=== PATIENT | male | born 1960 | race Two or more races ===

== ENCOUNTER 2025-01-05 16:11 | Emergency (ER) | payer BC, SELFPAY ==
[2025-01-05 16:18] VITALS: BP 140/100
[2025-01-05 16:36] VITALS: BMI 21.1
[2025-01-05 16:36] LABS: % Basophils 0.9 % (0-2); % Eosinophils 4.1 % (0-6); % Immature Granulocytes 0.2 % (0-0.5); % Lymphocytes 32.1 % (20.5-51.1); % Monocytes 7.6 % (1.7-9.3); % Neutrophils 55.1 % (42.2-75.2); Absolute Basophils 0.1 10^3/uL (0-0.2); Absolute Eosinophils 0.2 10^3/uL (0-0.7); Absolute Lymphocytes 1.7 10^3/uL (1.2-3.4); Absolute Monocytes 0.4 10^3/uL (0.1-0.6); Hematocrit 45.3 % (39.0-52.0); Hemoglobin 15.2 g/dL (13.0-18.0); Mean Corp Hgb Conc. 33.6 g/dL (33.0-37.0); Mean Corpuscular Hgb 29.6 pg (27.0-31.0); Mean Corpuscular Volume 88.1 fL (80.0-94.0); Mean Platelet Volume 11.7 fL (7.4-10.4); Nucleated Red Blood Cells % 0 % (-); Platelet Count 167 10^3/uL (130-400); Red Blood Cell Count 5.14 10^6/uL (4.70-6.10); Red Cell Dist. Width 12.9 % (11.5-14.5); White Blood Cell Count 5.4 10^3/uL (4.8-10.8)
[2025-01-05 16:52] LABS: ALT (SGPT) 33 U/L (0-50); AST (SGOT) 33 U/L (17-59); Albumin 4.6 g/dl (3.5-5.0); Alkaline Phosphatase 63 U/L (38-126); Blood Urea Nitrogen 16 mg/dl (9-20); Calcium 9.2 mg/dl (8.4-10.2); Carbon Dioxide 27 mmol/L (22-30); Chloride 104 mmol/L (98-107); Estimated Creatinine Clearance 53 ml/min; Glucose 134 mg/dl (70-99); Potassium 3.9 mmol/L (3.5-5.1); Sodium 140 mmol/L (135-145); Total Bilirubin 0.7 mg/dl (0.2-1.3); Total Protein 6.9 g/dl (6.3-8.2); eGFR > 60.00
[2025-01-05 17:04] LABS: Troponin I < 0.012 ng/ml
[2025-01-05 17:08] VITALS: BP 109/75
--- NOTE | 2025-01-05 17:24 | ED.GENMED ---
History of Present Illness
General
Chief Complaint: Chest Pain
Source: patient
Exam Limitations: none
Time Seen by Provider: 01/05/25 16:34
Nursing documentation reviewed up to this point in time: agreed with
History of Present Illness
History of Present Illness:
64 yr old male presents to the ED for evaluation of cp. Patient reports he has had intermittent chest pain for the past one week . Pt reports at times he will feel it in his left upper back and left arm. It is not associate with exertion. It
comes and goes intermittently. He denies any associated shortness of breath sweating or nausea with symptoms. He has no cardiac history. He is currently asymptomatic. He does not smoke. He denies injury. denies any injury.
His only medical history..
Review of Systems
Review of Systems
Allergies reviewed?: Yes
All Other Systems: ROS reviewed and negative except as documented in HPI and ROS
Constitutional: Reports no symptoms
EENT: Reports no symptoms
Respiratory: Denies trouble breathing
Cardiac: Reports chest pain; Denies diaphoresis, palpitations or syncope
ABD/GI: Reports no symptoms
: Reports no symptoms
Musculoskeletal: Reports no symptoms
Skin: Reports no symptoms
Neurological: Reports no symptoms
Endocrine: Reports no symptoms
Psychiatric: Reports no symptoms
Phy Exam
General Physical Exam
General Presentation: no apparent distress
General age: appears stated age
General Skin: warm and dry
General Habitus: normal
General Mental: alert
General Hydration: appears well hydrated
Cardiovascular Exam
Cardiovascular Exam: regular rate/rhythm, no murmur and normal peripheral pulses
Pulmonary Exam
Pulmonary Exam: lungs clear and no respiratory distress
Neurological Exam
Neurological Exam: alert and oriented x3
Musculoskeletal Exam
Musculoskeletal Exam: full ROM
Skin Exam
Skin Exam: normal color and warm/dry
Scores
Heart Score for Chest Pain Patients
STEMI patient?: Not applicable
Course
Orders/Labs/Results
Orders:
Orders
01/05/25 16:12
ECG [Electrocardiogram (*1)] Urgent
Reason for Study: Chest Pain
EKG- Treatment ONCE
01/05/25 16:26
Complete Blood Count/With Diff Urgent
Comprehensive Metabolic Panel Urgent
Troponin I Urgent
01/05/25 17:41
Chest [CR Chest - 2 Views ] Urgent
Comment:
Reason For Exam: cp
01/05/25 19:15
Electrocardiogram (*1) Stat
Reason for Study: Other
Other Reason for Exam: chest pain
EKG- Treatment ONCE
01/05/25 19:17
Troponin I Urgent
Abnormal Lab Results
01/05/25
16:26
MPV 11.7 H fL
(7.4-10.4)
Glucose 134 H mg/dl
(70-99)
01/05/25 16:26
01/05/25 16:26
Vital Signs
Initial and Last Documented VS:
Initial Vital Signs
Temp Pulse Resp BP Pulse Ox
98.2 F 71 18 140/100 99
01/05/25 16:18 01/05/25 16:18 01/05/25 16:18 01/05/25 16:18 01/05/25 16:18
Last Documented Vital Signs
Temp Pulse Resp BP Pulse Ox
98.2 F 59 16 109/75 99
01/05/25 16:18 01/05/25 17:08 01/05/25 18:00 01/05/25 17:08 01/05/25 16:18
MDM/Problems Addressed
Differential Diagnosis Includes:
not limited to acs
MDM/Problems Addressed:
As documented patient is a 64-year-old male with no cardiac history no cardiac risk factors presents with intermittent left-sided chest pain back pain arm pain this week. This is not associate with exertion no associated shortness of breath nausea
vomiting or sweatiness. Patient has remained asymptomatic here in the ER. No recent injury. I am unable to reproduce symptoms .he has no shortness of breath he is nontachycardic nontachypneic nonhypoxic no lower extremity swelling .
patient's initial cardiac troponin is unremarkable .no acute findings and EKG is unremarkable. He has remained asymptomatic and is well-appearing. no acute findings on chest x-ray. Will plan for second cardiac troponin and repeat EKG however
stable for discharge home will place on chest pain hotline. All instructions reviewed with patient and son at bedside
*Radiology
Radiology exam reviewed: preliminary read by ED provider
*EKG
Interpretation: abnormal
Comparison EKG: no comparison EKG present
Heart Rate: 70
Rhythm: sinus
Ischemia: non-specific ST changes
*Critical Care Note
Total Time (30-74mins, 75-104mins- exclusive of procedures): Not Applicable
ED Attending Note
-
Portions of this chart may have been created with voice recognition software.� Occasional wrong word or��sound alike� substitutions may have occurred due to the inherent limitations of voice recognition software.
Discharge Plan
Departure
Patient Disposition: Home (Routine Discharge)
Date of Disposition: 01/05/25
Time of Disposition: 20:02
Patient with high blood pressure during this ER visit?: Yes
Condition: Fair
Covid-19: Not Applicable
Discharge Problem:
Chest pain
Instructions: Chest Pain CBC Follow Up, BLOOD PRESSURE
Referrals:
Jorge Champagne MD [Active] -
Luis Alberto Quinteros DO [Family Provider] -
Activity Restrictions/Additional Instructions:
As discussed you were placed on the cardiac hotline which means you should receive a call in the next 1 to 2 days. If you do not please give the office a call to schedule an appointment as soon as possible .
also please start taking 1 baby aspirin a day. No strenuous or exertional activities/exercise until cleared by cardiology.
Interventions
Interventions:
*Risk Screen - Suicide Last Done: 01/05/25 16:18
*General Assessment Last Done: 01/05/25 16:18
*Neglect/Abuse Screening Last Done: 01/05/25 16:18
*ED- Fall Risk Assessment Last Done: 01/05/25 16:28
*ED COVID-19 Vaccine History Last Done: 01/05/25 16:18
ED- Cardiac Assessment Last Done: 01/05/25 16:29
Discharge Date and Time
Print Language: YAKUT
[2025-01-05 18:00] VITALS: BP 124/75
[2025-01-05 19:15] VITALS: BP 130/71
--- NOTE | 2025-01-05 19:28 | EDRN ---
Report received, introduced myself to patient and family, repeat lab and EKG complete, no further complaints at this time, will continue to update.
[2025-01-05 19:57] LABS: Troponin I < 0.012 ng/ml
[2025-01-05 20:00] VITALS: BP 125/76
== END 2025-01-05 20:14 | disposition home or self-care (01) ==
LOC: EMR 16:11
PROVIDERS: Nurse Practitioner; EMERGENCY PHYSICIAN Emergency Medicine; FAMILY PHYSICIAN Family Medicine
DX: R07.89 Other chest pain (principal); M54.6 Pain in thoracic spine; M79.602 Pain in left arm
CPT/HCPCS: 99285; 71046; 80053; 84484; 85025; 93005

== ENCOUNTER → 2025-02-19 14:38 | Outpatient (REF) | payer BC, SELFPAY | LOC: RCS 14:38 | PROVIDERS: ATTENDING PHYSICIAN Internal Medicine Cardiovascular Disease; FAMILY PHYSICIAN Family Medicine | DX: R07.2 Precordial pain (principal) | CPT/HCPCS: 93017 ==

== ENCOUNTER → 2025-02-27 14:32 | Outpatient (REF) | payer BC, SELFPAY | LOC: RCS 14:32 | PROVIDERS: ATTENDING PHYSICIAN Internal Medicine Cardiovascular Disease; FAMILY PHYSICIAN Family Medicine | DX: R07.2 Precordial pain (principal) | CPT/HCPCS: 93306 ==